=== PATIENT | male | born 1970 | race Caucasian/White ===

== ENCOUNTER 2024-09-02 10:09 | Day surgery (SDC) | payer BC ==
[2024-09-02] MEDS: Lactated Ringers 1,000 ML IV SCH (10:26)
[2024-09-02] MEDS ORDERED: Propofol 200 MG/20 ML SDV ONE (10:42)
[2024-09-02] MEDS ORDERED: fentaNYL 100 MCG/2 ML SDV ONE (10:42)
== END 2024-09-02 12:45 | disposition home or self-care (01) ==
LOC: VM.SDS 10:09
PROVIDERS: ATTEND Surgery
DX: Z12.11 Encounter for screening for malignant neoplasm of colon (principal); K52.9 Noninfective gastroenteritis and colitis, unspecified; E66.01 Morbid (severe) obesity due to excess calories; Z79.82 Long term (current) use of aspirin; Z79.899 Other long term (current) drug therapy
CPT/HCPCS: 00811; J2704; J3010; J7120

== ENCOUNTER 2025-03-14 16:13 | Emergency (ER) | payer BC ==
[2025-03-14] MEDS: Nitroglycerin 0.4 MG Tab.SL SL ONE ×3 (16:36→18:00)
[2025-03-14] MEDS ORDERED: Sodium Chloride 0.9% 10 ML Syringe FLUSH PRN (16:37)
[2025-03-14 16:44] LABS: BASOPHILS ABSOLUTE AUTO 0.0 x10^3/uL (0.0-0.2); BASOPHILS PERCENT AUTO 0.3 % (0.2-1.2); EOSINOPHILS ABSOLUTE AUTO 0.0 x10^3/uL (0.0-0.5); EOSINOPHILS PERCENT AUTO 0.4 % (0.0-4.0); IMMATURE GRAN ABSOLUTE AUTO 0.01 x10^3/uL (0.00-0.07); IMMATURE GRAN PERCENT AUTO 0.10 % (0.00-0.43); LYMPHOCYTES ABSOLUTE AUTO 2.3 x10^3/uL (1.0-4.8); LYMPHOCYTES PERCENT AUTO 25.4 % (25.0-50.0); MONOCYTES ABSOLUTE AUTO 0.5 x10^3/uL (0.0-0.8); MONOCYTES PERCENT AUTO 5.9 % (2.0-11.0); NEUTROPHILS ABSOLUTE AUTO 6.0 x10^3/uL (1.8-7.7); NEUTROPHILS PERCENT AUTO 67.9 % (50.0-80.0); PLATELET COUNT,PLT 224 x10^3/uL (130-400); RED BLOOD CELL COUNT 5.01 x10^6/uL (4.5-6.0); WHITE BLOOD CELL COUNT,WBC 8.9 x10^3/uL (4.0-10.0)
[2025-03-14 16:59] LABS: A/G RATIO 1.12; ALANINE AMINOTRANSFERASE,ALT 47.0 U/L (16-63); ASPARTATE AMNIOTRANSFERASE,AST 26.0 U/L (15-37); BILIRUBIN TOTAL 1.0 mg/dL (0.2-1.0); BLOOD UREA NITROGEN,BUN 13.0 mg/dL (7-18); CARBON DIOXIDE,CO2 26.0 mmol/L (21-32); CHLORIDE,CL 103.0 mmol/L (98-107); CREATINE KINASE,CK 88.0 U/L (39-308); CREATININE 1.2 mg/dL (0.70-1.30); EST CRCL DRUG DOSING (CG) 71.19 mL/min; GLUCOSE RANDOM 106.0 mg/dL (70-99); POTASSIUM,K 3.5 mmol/L (3.5-5.1); PROTEIN TOTAL,TP 7.2 g/dL (6.4-8.2); SODIUM,NA 141.0 mmol/L (136-145)
[2025-03-14 17:01] LABS: ESTIMATED GFR 72.0 mL/min (>=60)
[2025-03-14 17:03] LABS: INR 0.9 (0.9-1.1); PTT,PARTIAL THROMBOPLSTIN TIME 28.8 SEC (23.5-33.2)
== END 2025-03-14 19:22 | disposition home or self-care (01) ==
LOC: VM.ED 16:13
DX: R07.89 Other chest pain (principal); E78.00 Pure hypercholesterolemia, unspecified; I10 Essential (primary) hypertension; I25.2 Old myocardial infarction; Z88.0 Allergy status to penicillin; Z79.82 Long term (current) use of aspirin
CPT/HCPCS: 36415; 71045; 80053; 82550; 83735; 84484; 85025; 85610; 85730; 93005; 96361; 96374; 99285; A9270; J2270; J7030; 93010; 99284